=== PATIENT | female | born 1955 | race Caucasian/White ===

== ENCOUNTER 2020-04-20 03:00 | Emergency (ER) | payer MEDICAID | END 2020-04-20 04:44 | disposition left against medical advice (07) | LOC: ED 03:00 | DX: M54.9 Dorsalgia, unspecified (principal); Z53.21 Procedure and treatment not carried out due to patient leaving prior to being seen by health care provider ==

== ENCOUNTER 2020-04-22 03:28 | Emergency (ER) | payer MEDICAID ==
[~2020-04-22] VITALS: Ht 154.9 cm; Wt 135.4 kg
--- NOTE | 2020-04-22 03:43 | NUR ---
PT BEING AGGRESSIVE WITH THIS RN AT THIS TIME.
[2020-04-22] MEDS ORDERED: HYDROcodone/APAP 5/325 TABLET ONE (03:53)
--- NOTE | 2020-04-22 03:56 | NUR ---
PT MEDICATED PER MAR.
[2020-04-22] MEDS ORDERED: HYDROcodone/APAP 5/325 TABLET PO ONE (04:00)
--- NOTE | 2020-04-22 05:48 | NUR ---
pt d/c with d/c summary and scripts. all questions answered. pt provided incentive spirometer and instructions for use. pt able to show return demonstration correctly. pt provided taxi voucher for safe d/c to home. pt denies any other needs pertaining to this visit.
[2020-04-22 05:50] VITALS: BP 108/43
== END 2020-04-22 05:52 | disposition home or self-care (01) ==
LOC: ED 05:00
DX: S22.41XA Multiple fractures of ribs, right side, initial encounter for closed fracture (principal); S20.211A Contusion of right front wall of thorax, initial encounter; I10 Essential (primary) hypertension; E11.9 Type 2 diabetes mellitus without complications; W01.0XXA Fall on same level from slipping, tripping and stumbling without subsequent striking against object, initial encounter; Y93.89 Activity, other specified; Y92.009 Unspecified place in unspecified non-institutional (private) residence as the place of occurrence of the external cause; Y99.8 Other external cause status
CPT/HCPCS: 99283